=== PATIENT | female | born 1935 | race Caucasian/White ===

== ENCOUNTER 2017-07-26 16:29 | Inpatient (IN) ==
[2017-07-26] MEDS ORDERED: SODIUM CHLORIDE 0.9% 1,000 ML IV STA (16:53)
[2017-07-26 17:04] LABS: Basophils # 0.1 10*3/uL (0.0-0.2); Basophils % 1.2 % (0.0-0.8); Eosinophils # 0.2 10*3/uL (0.0-0.87); Eosinophils % 2.6 % (0.00-10.9); Hematocrit 30.9 VOL% (35.7-47.0); Hemoglobin 10.6 GM/DL (12.0-16.0); Immature Granulocytes % 0.3 %; Immature Granulocytes Absolute 0.02 #; Lymphocytes # 1.6 10*3/uL (1.4-4.0); Lymphocytes % 23.9 % (21.3-54.2); Mean Corpuscular HGB Conc 34.3 GM/DL (32-36); Mean Corpuscular Hemoglobin 32 PG (27-34); Mean Corpuscular Volume 94.2 FL (87-102); Mean Platelet Volume 10.5 FL (9.6-12.0); Monocytes # 0.6 10*3/uL (0.11-0.8); Neutrophils # 4.4 10*3/uL (1.4-7.4); Platelet Count 210 T/CUMM (130-400); Red Blood Count 3.28 MC/CUMM (3.8-5.5); Red Cell Distribution Width 13.6 % (9.3-17.3); White Blood Count 6.9 T/CUMM (4-12)
[2017-07-26 17:14] LABS: Apearance,Urine CLEAR (Clear); Bilirubin,Urine Negative (Negative); Blood, Urine Negative (Negative); Glucose,Urine (UA) Negative (Negative); Ketones,Urine Negative (Negative); Mucus,Urine Occasional /LPF (Occasional); Nitrite,Urine Negative (Negative); Protein,Urine Negative; RBC,Urine 1 /HPF (0-4); Squamous Epithelial Cell,Urine Occasional /HPF (0-10); Transitional Epi Cells,Urine Occasional /HPF (<1); Urine Color Yellow (Yellow); Urine Specific Gravity 1.012 (1.001-1.035); Urine Urobilinogen < 2.0 EU/DL (0.2-1.0); WBC,Urine 20 /HPF (0-6)
[2017-07-26 17:32] LABS: Alanine Aminotransferase 24 U/L (13-56); Albumin 3.6 G/DL (3.4-5.0); Alkaline Phosphatase 40 U/L (45-117); Aspartate Amino Transferase 14 U/L (0-37); Bilirubin,Total < 0.39 MG/DL (0.2-1.0); Blood Urea Nitrogen 32 MG/DL (7-18); Calcium 9.3 MG/DL (8.5-10.1); Glucose 92 MG/DL (74-106); Osmolality,Calculated 279.8 MOS/KG (273-304); Potassium 4.1 MMOL/L (3.5-5.1); Sodium 137 MMOL/L (136-145); Total Protein 6.3 G/DL (6.4-8.3); Troponin I Only < 0.015 NG/ML (0.00-0.045)
[2017-07-26 17:35] LABS: Ammonia < 10 UMOL/L (11-32)
[2017-07-26] MEDS ORDERED: cefTRIAXone 1,000 MG in SODIUM CHLORIDE 0.9% 100 ML IV STA (17:49)
[2017-07-26 17:51] LABS: Barbiturates Screen,Urine Negative (Negative); Benzodiazepines Screen,Urine Negative (Negative); Cannabinoid Screen,Urine Negative (Negative); Opiate Screen,Urine Negative (Negative); Phencyclidine Screen,Urine Negative (Negative)
[2017-07-26] MEDS ORDERED: cefTRIAXone 1,000 MG VIAL ONE (17:54)
[2017-07-26] MEDS: SODIUM CHLORIDE 0.9% 1,000 ML IV SCH (20:15)
[2017-07-26] MEDS ORDERED: ONDANSETRON 4 MG/2 ML VIAL IV PRN (20:34)
[2017-07-26] MEDS: ENOXAPARIN 40 MG/0.4 ML SYRINGE SUBCUT SCH (21:44)
[2017-07-26] MEDS: MIRTAZAPINE 15 MG TABLET PO SCH (21:45)
[2017-07-26] MEDS ORDERED: IBUPROFEN 400 MG TABLET PO PRN (21:48)
[2017-07-27 06:19] LABS: Basophils # 0.1 10*3/uL (0.0-0.2); Basophils % 1.4 % (0.0-0.8); Eosinophils # 0.2 10*3/uL (0.0-0.87); Eosinophils % 4.9 % (0.00-10.9); Hematocrit 27.5 VOL% (35.7-47.0); Hemoglobin 9.2 GM/DL (12.0-16.0); Immature Granulocytes % 0.2 %; Immature Granulocytes Absolute 0.01 #; Lymphocytes # 1.6 10*3/uL (1.4-4.0); Lymphocytes % 33.6 % (21.3-54.2); Mean Corpuscular HGB Conc 33.5 GM/DL (32-36); Mean Corpuscular Hemoglobin 32 PG (27-34); Mean Corpuscular Volume 94.5 FL (87-102); Monocytes # 0.5 10*3/uL (0.11-0.8); Monocytes % 10.5 % (1.7-12.7); Neutrophils # 2.4 10*3/uL (1.4-7.4); Neutrophils % 49.4 % (38.7-73.9); Platelet Count 185 T/CUMM (130-400); Red Blood Count 2.91 MC/CUMM (3.8-5.5); Red Cell Distribution Width 13.7 % (9.3-17.3); White Blood Count 4.9 T/CUMM (4-12)
[2017-07-27] MEDS: SODIUM CHLORIDE 0.9% 1,000 ML IV SCH ×3 (06:25→17:19)
[2017-07-27] MEDS: LEVOTHYROXINE 50 MCG TABLET PO SCH (06:25)
[2017-07-27 06:43] LABS: Calcium 8.3 MG/DL (8.5-10.1); Osmolality,Calculated 285.1 MOS/KG (273-304); Potassium 3.9 MMOL/L (3.5-5.1)
[2017-07-27 07:22] LABS: Free T4 (Free Thyroxine) 1.03 NG/DL (0.76-1.46); Thyroid Stimulating Hormone 1.97 uIU/ml (0.358-3.74)
[2017-07-27] MEDS: CALCIUM CARBONATE CHEW 500 MG TABLET PO SCH (08:31)
[2017-07-27] MEDS: DOCUSATE SODIUM 100 MG CAPSULE PO PRN (08:31)
[2017-07-27] MEDS: POLYCARBOPHIL 625 MG TABLET PO SCH (08:31)
[2017-07-27] MEDS: DONEPEZIL 10 MG TABLET PO SCH (08:31)
[2017-07-27] MEDS: OMEGA 3 ACID ETHYL ESTERS 1 GM CAPSULE PO SCH (08:31)
[2017-07-27] MEDS: MULTIVITAMIN (BEROCCA) TABLET PO SCH (08:31)
[2017-07-27] MEDS: PANTOPRAZOLE 40 MG TABLET PO SCH (08:32)
[2017-07-27] MEDS: TELMISARTAN 40 MG TABLET PO SCH (08:32)
[2017-07-27] MEDS ORDERED: MEMANTINE HCL PO SCH (09:00)
[2017-07-27] MEDS ORDERED: [UNRECOGNIZED DRUG - OTHER] PO SCH (09:00)
[2017-07-27] MEDS ORDERED: DONEPEZIL HCL PO SCH (09:00)
[2017-07-27] MEDS: MEMANTINE 10 MG TABLET PO SCH ×2 (15:13→21:20)
[2017-07-27] MEDS: MIRTAZAPINE 15 MG TABLET PO SCH (21:20)
[2017-07-27] MEDS: ALPRAZolam 0.25 MG TABLET PO PRN (21:20)
[2017-07-27] MEDS: ENOXAPARIN 40 MG/0.4 ML SYRINGE SUBCUT SCH (21:20)
[2017-07-28] MEDS: SODIUM CHLORIDE 0.9% 1,000 ML IV SCH ×3 (03:36→22:16)
[2017-07-28] MEDS: LEVOTHYROXINE 50 MCG TABLET PO SCH (06:10)
[2017-07-28] MEDS: CETIRIZINE 10 MG TABLET PO SCH (06:10)
[2017-07-28] MEDS: CLORAZEPATE 3.75 MG TABLET PO PRN ×2 (06:10→17:14)
[2017-07-28] MEDS: OMEGA 3 ACID ETHYL ESTERS 1 GM CAPSULE PO SCH (08:54)
[2017-07-28] MEDS: MULTIVITAMIN (BEROCCA) TABLET PO SCH (08:54)
[2017-07-28] MEDS: PANTOPRAZOLE 40 MG TABLET PO SCH (08:54)
[2017-07-28] MEDS: DOCUSATE SODIUM 100 MG CAPSULE PO PRN (08:54)
[2017-07-28] MEDS: DONEPEZIL 10 MG TABLET PO SCH (08:54)
[2017-07-28] MEDS: CALCIUM CARBONATE CHEW 500 MG TABLET PO SCH (08:54)
[2017-07-28] MEDS: MEMANTINE 10 MG TABLET PO SCH ×2 (08:55→21:18)
[2017-07-28] MEDS: TELMISARTAN 40 MG TABLET PO SCH (08:55)
[2017-07-28] MEDS: POLYCARBOPHIL 625 MG TABLET PO SCH (08:55)
[2017-07-28] MEDS: ENOXAPARIN 40 MG/0.4 ML SYRINGE SUBCUT SCH (21:17)
[2017-07-28] MEDS: MIRTAZAPINE 15 MG TABLET PO SCH (21:18)
[2017-07-28] MEDS: ALPRAZolam 0.25 MG TABLET PO PRN (22:22)
[2017-07-29] MEDS: CLORAZEPATE 3.75 MG TABLET PO PRN (01:12)
[2017-07-29] MEDS: LEVOTHYROXINE 50 MCG TABLET PO SCH (06:10)
[2017-07-29 07:24] VITALS: BP 157/76
[2017-07-29] MEDS: SODIUM CHLORIDE 0.9% 1,000 ML IV SCH (08:00)
[2017-07-29] MEDS: DONEPEZIL 10 MG TABLET PO SCH (09:07)
[2017-07-29] MEDS: CALCIUM CARBONATE CHEW 500 MG TABLET PO SCH (09:07)
[2017-07-29] MEDS: MULTIVITAMIN (BEROCCA) TABLET PO SCH (09:07)
[2017-07-29] MEDS: TELMISARTAN 40 MG TABLET PO SCH (09:07)
[2017-07-29] MEDS: MEMANTINE 10 MG TABLET PO SCH (09:07)
[2017-07-29] MEDS: OMEGA 3 ACID ETHYL ESTERS 1 GM CAPSULE PO SCH (09:07)
[2017-07-29] MEDS: CETIRIZINE 10 MG TABLET PO SCH (09:07)
[2017-07-29] MEDS: POLYCARBOPHIL 625 MG TABLET PO SCH (09:08)
[2017-07-29] MEDS: PANTOPRAZOLE 40 MG TABLET PO SCH (09:08)
== END 2017-07-29 12:50 | DRG 690 ==
LOC: EDBD → EDUNIT# → N.ED 16:29 → N.EDINP 18:19 → N.5E 19:04
PROVIDERS: ADMIT Hospitalist; ATTEND Hospitalist

== ENCOUNTER 2018-05-12 12:03 | Inpatient (IN) ==
[2018-05-12] MEDS ORDERED: SODIUM CHLORIDE 0.9% 500 ML IV STA (12:34)
[2018-05-12] MEDS ORDERED: ONDANSETRON 4 MG/2 ML VIAL IV STA (12:34)
[2018-05-12 13:37] LABS: Basophils # 0.1 10*3/uL (0.0-0.2); Basophils % 1.1 % (0.0-0.8); Eosinophils # 0.2 10*3/uL (0.0-0.87); Eosinophils % 2.4 % (0.00-10.9); Hematocrit 27.5 VOL% (35.7-47.0); Hemoglobin 8.7 GM/DL (12.0-16.0); Immature Granulocytes % 0.3 %; Immature Granulocytes Absolute 0.02 #; Lymphocytes # 1.2 10*3/uL (1.4-4.0); Lymphocytes % 18.9 % (21.3-54.2); Mean Corpuscular HGB Conc 31.6 GM/DL (32-36); Mean Corpuscular Hemoglobin 31 PG (27-34); Mean Corpuscular Volume 98.2 FL (87-102); Mean Platelet Volume 11.2 FL (9.6-12.0); Monocytes # 0.5 10*3/uL (0.11-0.8); Monocytes % 8.3 % (1.7-12.7); Neutrophils # 4.2 10*3/uL (1.4-7.4); Platelet Count 158 T/CUMM (130-400); Red Cell Distribution Width 14.3 % (9.3-17.3); White Blood Count 6.1 T/CUMM (4-12)
[2018-05-12 13:51] LABS: Apearance,Urine Slightly Hazy (Clear); Bilirubin,Urine Negative (Negative); Blood, Urine Negative (Negative); Glucose,Urine (UA) Negative (Negative); Hyaline Casts,Urine 8 /LPF (0-3); Ketones,Urine Negative (Negative); Nitrite,Urine Negative (Negative); Protein,Urine Negative; RBC,Urine 1 /HPF (0-4); Squamous Epithelial Cell,Urine Occasional /HPF (0-10); Urine Color Yellow (Yellow); Urine Specific Gravity 1.014 (1.001-1.035); Urine Urobilinogen < 2.0 EU/DL (0.2-1.0); WBC,Urine 10 /HPF (0-6)
[2018-05-12 13:52] LABS: INR 0.9
[2018-05-12 14:09] LABS: Alanine Aminotransferase 22 U/L (13-56); Alkaline Phosphatase 42 U/L (45-117); Aspartate Amino Transferase 12 U/L (0-37); Bilirubin,Total < 0.39 MG/DL (0.2-1.0); Blood Urea Nitrogen 51 MG/DL (7-18); Calcium 8.6 MG/DL (8.5-10.1); Glucose 89 MG/DL (74-106); Osmolality,Calculated 295.1 MOS/KG (273-304); Potassium 3.9 MMOL/L (3.5-5.1); Sodium 142 MMOL/L (136-145); Total Protein 6.4 G/DL (6.4-8.3); Troponin I Only < 0.015 NG/ML (0.00-0.045)
[2018-05-12] MEDS ORDERED: cefTRIAXone 1,000 MG in SODIUM CHLORIDE 0.9% 100 ML IV STA (14:12)
[2018-05-12] MEDS ORDERED: ACETAMINOPHEN 325 MG TABLET PO PRN (16:54)
[2018-05-12] MEDS ORDERED: DICYCLOMINE 10 MG CAPSULE PO PRN (17:49)
[2018-05-12] MEDS: SODIUM CHLORIDE 0.9% 1,000 ML IV SCH (18:27)
[2018-05-12] MEDS ORDERED: FLUTICASONE PROPIONATE INH SCH (21:00)
[2018-05-12] MEDS: MEMANTINE 10 MG TABLET PO SCH (21:29)
[2018-05-12] MEDS: LACTOBACILLUS ACIDOPHILUS/BULGARICUS CAPLET PO SCH (21:29)
[2018-05-12] MEDS: MIRTAZAPINE 15 MG TABLET PO SCH (21:29)
[2018-05-12] MEDS: METHENAMINE HIPPURATE 1 GM TABLET PO SCH (21:29)
[2018-05-12] MEDS: GABAPENTIN 300 MG CAPSULE PO SCH (21:29)
[2018-05-13] MEDS ORDERED: NITROGLYCERIN SL 0.4 MG TABLET SL PRN (02:53)
[2018-05-13] MEDS ORDERED: ASPIRIN CHEW 81 MG TABLET PO ONE (02:53)
[2018-05-13] MEDS ORDERED: ASPIRIN 325 MG TABLET ONE (02:55)
[2018-05-13 03:34] LABS: Basophils # 0.1 10*3/uL (0.0-0.2); Basophils % 1.2 % (0.0-0.8); Eosinophils # 0.2 10*3/uL (0.0-0.87); Eosinophils % 3.7 % (0.00-10.9); Eosinophils % 4.3 % (0.00-10.9); Hematocrit 29.1 VOL% (35.7-47.0); Hemoglobin 9.1 GM/DL (12.0-16.0); Immature Granulocytes % 0.2 %; Immature Granulocytes % 0.7 %; Immature Granulocytes Absolute 0.01 #; Immature Granulocytes Absolute 0.04 #; Lymphocytes # 1.6 10*3/uL (1.4-4.0); Lymphocytes % 27.8 % (21.3-54.2); Lymphocytes % 29.2 % (21.3-54.2); Mean Corpuscular HGB Conc 31.3 GM/DL (32-36); Mean Corpuscular HGB Conc 31.4 GM/DL (32-36); Mean Corpuscular Hemoglobin 31 PG (27-34); Mean Corpuscular Volume 98.3 FL (87-102); Mean Platelet Volume 11.4 FL (9.6-12.0); Mean Platelet Volume 11.5 FL (9.6-12.0); Monocytes # 0.4 10*3/uL (0.11-0.8); Monocytes % 6.4 % (1.7-12.7); Monocytes % 7.3 % (1.7-12.7); Neutrophils # 3.3 10*3/uL (1.4-7.4); Neutrophils # 3.4 10*3/uL (1.4-7.4); Neutrophils % 57.8 % (38.7-73.9); Neutrophils % 60.2 % (38.7-73.9); Platelet Count 183 T/CUMM (130-400); Platelet Count 185 T/CUMM (130-400); Red Blood Count 2.95 MC/CUMM (3.8-5.5); Red Blood Count 2.96 MC/CUMM (3.8-5.5); Red Cell Distribution Width 14.3 % (9.3-17.3); Red Cell Distribution Width 14.6 % (9.3-17.3); White Blood Count 5.6 T/CUMM (4-12)
[2018-05-13 03:57] LABS: Calcium 8.2 MG/DL (8.5-10.1); Osmolality,Calculated 295.7 MOS/KG (273-304); Potassium 3.6 MMOL/L (3.5-5.1)
[2018-05-13 04:01] LABS: Alanine Aminotransferase 21 U/L (13-56); Albumin 3.2 G/DL (3.4-5.0); Alkaline Phosphatase 42 U/L (45-117); Aspartate Amino Transferase 14 U/L (0-37); Bilirubin,Total < 0.39 MG/DL (0.2-1.0); Blood Urea Nitrogen 37 MG/DL (7-18); Calcium 8.3 MG/DL (8.5-10.1); Glucose 76 MG/DL (74-106); Osmolality,Calculated 293.8 MOS/KG (273-304); Potassium 3.6 MMOL/L (3.5-5.1); Sodium 144 MMOL/L (136-145); Total Protein 6.5 G/DL (6.4-8.3); Troponin I Only < 0.015 NG/ML (0.00-0.045)
[2018-05-13] MEDS: SODIUM CHLORIDE 0.9% 1,000 ML IV SCH ×2 (07:50→09:15)
[2018-05-13] MEDS ORDERED: DONEPEZIL 10 MG TABLET PO SCH (09:00)
[2018-05-13] MEDS: LACTOBACILLUS ACIDOPHILUS/BULGARICUS CAPLET PO SCH ×2 (09:15→20:50)
[2018-05-13] MEDS: ESCITALOPRAM 10 MG TABLET PO SCH (09:15)
[2018-05-13] MEDS: MEMANTINE 10 MG TABLET PO SCH ×2 (09:15→20:50)
[2018-05-13] MEDS: LEVOTHYROXINE 75 MCG TABLET PO SCH (09:15)
[2018-05-13] MEDS: TELMISARTAN 40 MG TABLET PO SCH (09:15)
[2018-05-13] MEDS: PANTOPRAZOLE 40 MG TABLET PO SCH (09:15)
[2018-05-13] MEDS: METHENAMINE HIPPURATE 1 GM TABLET PO SCH ×2 (09:15→20:50)
[2018-05-13] MEDS ORDERED: GABAPENTIN 300 MG CAPSULE PO SCH (16:00)
[2018-05-13] MEDS ORDERED: ALPRAZolam 0.25 MG TABLET PO SCH (16:00)
[2018-05-13] MEDS: GABAPENTIN 300 MG CAPSULE PO SCH (20:50)
[2018-05-13] MEDS: MIRTAZAPINE 15 MG TABLET PO SCH (20:50)
[2018-05-13] MEDS ORDERED: FLUTICASONE 50 MCG NASAL SPRAY 16 GM BOTTLE BOTH NARES PRN (23:00)
[2018-05-14 05:29] LABS: Osmolality,Calculated 288.8 MOS/KG (273-304); Potassium 3.6 MMOL/L (3.5-5.1)
[2018-05-14] MEDS: LEVOTHYROXINE 75 MCG TABLET PO SCH (05:57)
[2018-05-14] MEDS ORDERED: amLODIPine 5 MG TABLET PO SCH (09:00)
[2018-05-14] MEDS: SODIUM CHLORIDE 0.9% 1,000 ML IV SCH (10:03)
[2018-05-14] MEDS: PANTOPRAZOLE 40 MG TABLET PO SCH (10:28)
[2018-05-14] MEDS: MEMANTINE 10 MG TABLET PO SCH (10:28)
[2018-05-14] MEDS: LACTOBACILLUS ACIDOPHILUS/BULGARICUS CAPLET PO SCH (10:31)
[2018-05-14] MEDS: TELMISARTAN 40 MG TABLET PO SCH (10:32)
[2018-05-14] MEDS: METHENAMINE HIPPURATE 1 GM TABLET PO SCH (10:33)
[2018-05-14] MEDS: ESCITALOPRAM 10 MG TABLET PO SCH (10:34)
[2018-05-14] MEDS: DICLOFENAC 1% GEL 100 GM TUBE TOP SCH ×2 (11:40→15:00)
[2018-05-14 12:42] VITALS: BP 134/62
== END 2018-05-14 15:00 | disposition home health service (06) | DRG 684 ==
LOC: N.ED 12:03 → N.EDINP 12:03 → N.4E 19:14
PROVIDERS: ADMIT Internal Medicine; ATTEND Internal Medicine